=== PATIENT | female | born 1990 | race Caucasian/White ===

== ENCOUNTER 2023-03-28 19:27 | Emergency (ER) | payer OTHER ==
[2023-03-28 19:35] VITALS: BP 115/71; PULSE 77; RESP 18; TEMP 98.2; BMI 41.5
[2023-03-28] MEDS ORDERED: SODIUM CHLORIDE 0.9% 500 ML INFUS.BAG IV ONE (20:10)
[2023-03-28] MEDS ORDERED: ACETAMINOPHEN 1000 MG/100 ML BAG IVPB ONE (20:10)
[2023-03-28] MEDS ORDERED: ONDANSETRON 4 MG/2 ML VIAL IVPUSH ONE (20:10)
[2023-03-28] MEDS ORDERED: ONDANSETRON 4 MG/2 ML VIAL ONE (20:39)
[2023-03-28] MEDS ORDERED: ACETAMINOPHEN INJECTION 100 ML IVPB ONE (20:39)
[2023-03-28 20:44] LABS: BASO % 0.6 % (0-2.0); EOS % 1.7 % (0-4.5); HEMATOCRIT 41.6 % (32.4-45.2); HEMOGLOBIN 14.3 GM/dL (10.7-15.3); LYMPH % 26.4 % (8-40); MCH 29.4 pg (25.7-33.7); MCHC 34.5 g/dl (32.0-36.0); MEAN CELL VOLUME 85.2 fl (80-96); MEAN PLT VOLUME 8.1 fl (7.5-11.1); MONO % 8.3 % (3.8-10.2); PLATELET COUNT 229 10^3/uL (134-434); RBC 4.88 M/mm3 (3.60-5.2); RDW 14.3 % (11.6-15.6); URINE APPEARANCE CLEAR; URINE BILIRUBIN NEGATIVE (NEGATIVE); URINE COLOR YELLOW; URINE GLUCOSE (UA) NEGATIVE (NEGATIVE); URINE KETONE TRACE (NEGATIVE); URINE LEUK ESTERASE NEGATIVE (NEGATIVE); URINE NITRITE NEGATIVE (NEGATIVE); URINE PROTEIN NEGATIVE (NEGATIVE); WHITE BLOOD COUNT 8.9 K/mm3 (4.0-10.0)
[2023-03-28 21:22] LABS: ALBUMIN 3.2 g/dl (3.4-5.0); BLOOD UREA NITROGEN 9.6 mg/dL (7-18); CALCIUM 8.1 mg/dL (8.5-10.1)
[2023-03-28 21:24] LABS: CREATININE 0.9 mg/dL (0.55-1.3)
[2023-03-28 21:27] LABS: TOT PROT 6.6 g/dl (6.4-8.2)
[2023-03-28 22:52] LABS: BILIRUBIN,TOTAL 0.3 mg/dL (0.2-1)
== END 2023-03-28 23:56 | disposition home or self-care (01) ==
LOC: JER 19:27
PROC: 3E033NZ Introduction of Analgesics, Hypnotics, Sedatives into Peripheral Vein, Percutaneous Approach (ICD-10-PCS; principal; 2023-03-28)
PROC: 3E033GC Introduction of Other Therapeutic Substance into Peripheral Vein, Percutaneous Approach (ICD-10-PCS; 2023-03-28)
DX: R10.32 Left lower quadrant pain (principal); R11.2 Nausea with vomiting, unspecified; R19.7 Diarrhea, unspecified; R10.10 Upper abdominal pain, unspecified; R68.83 Chills (without fever); R61 Generalized hyperhidrosis; R35.0 Frequency of micturition
CPT/HCPCS: 36415; 74177-TC; 80053; 81003; 83690; 83735; 84703; 85025; 99285-25; Q9967

== ENCOUNTER 2023-05-07 22:59 | Emergency (ER) | payer OTHER ==
[2023-05-07 23:08] VITALS: BP 110/66; PULSE 89; RESP 18; TEMP 98.1; BMI 40.3
[2023-05-07] MEDS ORDERED: ACETAMINOPHEN 1000 MG/100 ML BAG IVPB ONE (23:43)
[2023-05-07] MEDS ORDERED: ACETAMINOPHEN INJECTION 100 ML IVPB ONE (23:59)
[2023-05-08 00:27] LABS: BASO % 0.6 % (0-2.0); EOS % 2.5 % (0-4.5); HEMOGLOBIN 13.5 GM/dL (10.7-15.3); LYMPH % 24.1 % (8-40); MCH 29.4 pg (25.7-33.7); MCHC 34.5 g/dl (32.0-36.0); MEAN CELL VOLUME 85.3 fl (80-96); MEAN PLT VOLUME 8.1 fl (7.5-11.1); MONO % 6.2 % (3.8-10.2); NEUT % 66.6 % (42.8-82.8); PLATELET COUNT 241 10^3/uL (134-434); RBC 4.57 M/mm3 (3.60-5.2); RDW 14.4 % (11.6-15.6); WHITE BLOOD COUNT 9.4 K/mm3 (4.0-10.0)
[2023-05-08 01:01] LABS: CALCIUM 8.3 mg/dL (8.5-10.1)
[2023-05-08 01:02] LABS: ALBUMIN 3.1 g/dl (3.4-5.0); BLOOD UREA NITROGEN 10.8 mg/dL (7-18)
[2023-05-08 01:06] LABS: BILIRUBIN,TOTAL 0.3 mg/dL (0.2-1)
[2023-05-08 01:08] LABS: TOT PROT 6.4 g/dl (6.4-8.2)
[2023-05-08] MEDS ORDERED: RHO(D) IMMUNE GLOBULIN 1,500 UNIT DISP.SYRIN IM ONE (01:59)
== END 2023-05-08 05:11 | disposition home or self-care (01) ==
LOC: JER 22:59
PROC: 3E033NZ Introduction of Analgesics, Hypnotics, Sedatives into Peripheral Vein, Percutaneous Approach (ICD-10-PCS; principal; 2023-05-08)
PROC: 3E023GC Introduction of Other Therapeutic Substance into Muscle, Percutaneous Approach (ICD-10-PCS; 2023-05-08)
DX: O03.9 Complete or unspecified spontaneous abortion without complication (principal); R10.9 Unspecified abdominal pain; Z20.822 Contact with and (suspected) exposure to COVID-19
CPT/HCPCS: 0241U-QW; 36415; 76817-TC; 80053; 84702; 85025; 85610; 85730; 86850; 86900; 86901; 96372; 96374; 99284-25; J2790

== ENCOUNTER 2023-12-04 07:36 | Emergency (ER) | payer OTHER ==
[2023-12-04 07:42] VITALS: BP 106/71; PULSE 100; RESP 18; TEMP 99; BMI 33.9
[2023-12-04] MEDS: SODIUM CHLORIDE 0.9% 500 ML INFUS.BAG IV ONE (08:47)
[2023-12-04 09:13] LABS: HEMATOCRIT 40.2 % (32.4-45.2); HEMOGLOBIN 13.7 GM/dL (10.7-15.3); MCH 29.3 pg (25.7-33.7); MEAN CELL VOLUME 86.2 fl (80-96); MEAN PLT VOLUME 8.3 fl (7.5-11.1); PLATELET COUNT 280 10^3/uL (134-434); RBC 4.67 M/mm3 (3.60-5.2); RDW 14.3 % (11.6-15.6); WHITE BLOOD COUNT 15.2 K/mm3 (4.0-10.0)
[2023-12-04 10:06] LABS: POTASSIUM 3.6 mmol/L (3.5-5.1)
[2023-12-04 10:08] LABS: CALCIUM 8.9 mg/dL (8.5-10.1)
[2023-12-04 10:10] LABS: ALBUMIN 3.6 g/dl (3.4-5.0); BLOOD UREA NITROGEN 11.8 mg/dL (7-18)
[2023-12-04 10:13] LABS: CREATININE 1.1 mg/dL (0.55-1.3)
[2023-12-04 10:15] LABS: BILIRUBIN,TOTAL 0.3 mg/dL (0.2-1); TOT PROT 6.8 g/dl (6.4-8.2)
[2023-12-04] MEDS ORDERED: POTASSIUM CHLORIDE ORAL LIQUID 20 MEQ/15 ML ONE (10:28)
[2023-12-04] MEDS: POTASSIUM CHLORIDE ORAL LIQUID 20 MEQ/15 ML PO ONE (10:33)
[2023-12-04 10:42] LABS: ANISOCYTOSIS 0; MACROCYTOSIS 0
== END 2023-12-04 10:34 | disposition home or self-care (01) ==
LOC: JER 07:36
DX: F19.920 Other psychoactive substance use, unspecified with intoxication, uncomplicated (principal); E86.0 Dehydration
CPT/HCPCS: 36415; 80053; 85025; 93005; 93010; 99284-25